=== PATIENT | male | born 1990 | race Caucasian/White ===

== ENCOUNTER 2023-05-17 15:03 | Emergency (ER) | payer OTHER ==
[~2023-05-17] VITALS: Ht 172.7 cm; Wt 78.9 kg
[2023-05-17 15:10] VITALS: BP 141/85; PULSE 111; RESP 18; TEMP 99.1; O2SAT 97
[2023-05-17] MEDS ORDERED: ACET-10509 PO (16:11)
[2023-05-17] MEDS ORDERED: ACYC-258 PO (16:11)
[2023-05-17 16:17] VITALS: PULSE 100
== END 2023-05-17 16:17 | disposition home or self-care (01) ==
LOC: MED 15:03
DX: B02.9 Zoster without complications (principal); Z79.899 Other long term (current) drug therapy
CPT/HCPCS: 99283